=== PATIENT | female | born 1945 | race Caucasian/White ===

== ENCOUNTER 2016-10-16 12:56 | Inpatient (IN) | payer MEDICARE, OTHER ==
[2016-10-16] MEDS: SODIUM CHLORIDE 0.9% FLUSH 10 ML SOL IV PRN ×3 (13:05→21:01)
[2016-10-16] MEDS: SODIUM CHLORIDE 0.9% 1000ML 1,000 ML IV SCH ×4 (13:10→16:15)
[2016-10-16] MEDS ORDERED: CEFTRIAXONE 1 GM (PREMIX) 1 GM/50 ML SOL IV ONE ×2 (13:17→13:21)
[2016-10-16 13:23] LABS: HEMATOCRIT 33 % (35-47); MEAN CORPUSCULAR HGB CONC 33.8 gm/dl (32.0-36.0); MEAN CORPUSCULAR VOLUME 84 fL (81-99)
[2016-10-16 13:36] LABS: ALBUMIN 3.1 gm/dl (3.4-5.0); CALCIUM 8.8 mg/dl (8.5-10.1); POTASSIUM 4.1 mMol/L (3.5-5.1)
[2016-10-16 13:43] LABS: BASOPHILS % (MANUAL) 0 % (0-3); LYMPHOCYTES % (MANUAL) 11 % (10-50)
[2016-10-16 13:44] LABS: EOSINOPHILS % (MANUAL) 0 % (0-9)
[2016-10-16] MEDS ORDERED: PIPERACILLIN/TAZOBACT 3.375 GM 3.375 GM in SODIUM CHLORIDE 0.9% 100 ML 100 ML IV ONE (13:44)
[2016-10-16 13:45] LABS: NORMAL RBCS PRESENT
[2016-10-16] MEDS ORDERED: PIPERACILLIN/TAZOBACT 3.375 GM PDS IV ONE ×2 (13:47→21:05)
[2016-10-16 14:17] LABS: APPEARANCE,URINE Cloudy; BILIRUBIN,URINE 2+ (NEGATIVE); COLOR,URINE Dark yellow; GLUCOSE, URINE (UA) NEGATIVE (NEGATIVE); KETONES,URINE 1+ (NEGATIVE); LEUKOCYTE ESTERASE ,URINE 3+ (NEGATIVE); NITRATE,URINE NEGATIVE (NEGATIVE); OCCULT BLOOD,URINE 3+ (NEG-TRACE); UROBILINOGEN,URINE 0.2 (0.2-1.0 EU)
[2016-10-16 14:35] LABS: ICTOTEST,URINE NEGATIVE (NEGATIVE)
[2016-10-16 14:36] LABS: RBC,URINE UNABLE (0-3AV/HPF); WBC,URINE TNTC (0-5AV/HPF)
[2016-10-16] MEDS ORDERED: VANCOMYCIN HCL 500 MG PDS 500 MG in SODIUM CHLORIDE 0.9% 100 ML 100 ML IV ONE (15:02)
[2016-10-16] MEDS ORDERED: VANCOMYCIN HYDROCHLORIDE 500 MG PDS IV ONE (15:13)
[2016-10-16] MEDS ORDERED: WATER, STERILE 20 ML 20 ML ONE (15:27)
[2016-10-16] MEDS ORDERED: ALBUTEROL/IPRATROPIUM 1 VIAL SOL ONE (15:58)
[2016-10-16] MEDS ORDERED: ALBUTEROL/IPRATROPIUM 1 VIAL SOL INH PRN (16:01)
[2016-10-16] MEDS ORDERED: ACETAMINOPHEN 500 MG 500 MG TAB PO ONE (16:15)
[2016-10-16] MEDS ORDERED: ACETAMINOPHEN 500 MG 500 MG TAB ONE (16:16)
[2016-10-16] MEDS ORDERED: LORAZEPAM 0.5 MG TAB PO PRN (16:25)
[2016-10-16] MEDS ORDERED: LORAZEPAM 0.5 MG TAB ONE (16:29)
[2016-10-16 16:45] LABS: ABG PH 7.33 (7.35-7.45)
[2016-10-16] MEDS ORDERED: GENTAMICIN SULFATE 40 MG/ML SOL ONE (16:50)
[2016-10-16] MEDS ORDERED: LORAZEPAM 2 MG/ML SOL IV ONE (16:55)
[2016-10-16] MEDS ORDERED: LORAZEPAM 2 MG/ML SOL ONE (16:56)
[2016-10-16] MEDS ORDERED: ENOXAPARIN 40 MG SOL SC SCH ×2 (17:00→18:30)
[2016-10-16] MEDS ORDERED: GENTAMICIN SULFATE 40 MG/ML 80 MG in SODIUM CHLORIDE 0.9% 100 ML 100 ML IV SCH (17:00)
[2016-10-16] MEDS ORDERED: LEVOFLOXACIN 25 MG/ML SOL IV ONE (17:13)
[2016-10-16] MEDS ORDERED: DEXTROSE/SALINE 0.45% 1,000 ML IV SCH (17:15)
[2016-10-16] MEDS: LEVOFLOXACIN 25 MG/ML 250 MG in SODIUM CHLORIDE 0.9% 100 ML 100 ML IV SCH (17:17)
[2016-10-16] MEDS ORDERED: NOREPINEPHRINE BITARTRATE 4 MG/4 ML SOL IV ONE (17:23)
[2016-10-16] MEDS ORDERED: NOREPINEPHRINE 4 MG/4 ML 4 MG in DEXTROSE 500 ML 500 ML IV SCH (17:30)
[2016-10-16 17:41] LABS: HEMATOCRIT 30 % (35-47); MEAN CORPUSCULAR HGB CONC 32.6 gm/dl (32.0-36.0); MEAN CORPUSCULAR VOLUME 85 fL (81-99)
[2016-10-16] MEDS ORDERED: SOLUMEDROL 125 MG/2 ML 125 MG/2 ML PDS IV SCH (17:45)
[2016-10-16] MEDS ORDERED: SOLUMEDROL 125 MG/2 ML 125 MG/2 ML PDS ONE (17:50)
[2016-10-16] MEDS: NOREPINEPHRINE 4 MG/4 ML 4 MG in DEXTROSE 500 ML 500 ML IV SCH (17:50)
[2016-10-16 17:58] LABS: CALCIUM 7.5 mg/dl (8.5-10.1); POTASSIUM 3.7 mMol/L (3.5-5.1)
[2016-10-16] MEDS: SODIUM CHLORIDE 0.9% 500 ML 500 ML IV SCH (18:15)
[2016-10-16] MEDS ORDERED: ACETAMINOPHEN 650 MG SUP PR ONE (18:18)
[2016-10-16 18:39] LABS: BASOPHILS % (MANUAL) 2 % (0-3); EOSINOPHILS % (MANUAL) 0 % (0-9); LYMPHOCYTES % (MANUAL) 32 % (10-50)
[2016-10-16 18:40] LABS: ANISOCYTOSIS SLIGHT
[2016-10-16] MEDS ORDERED: SODIUM CHLORIDE 0.9% 100 ML 100 ML IV ONE (21:06)
[2016-10-16] MEDS: PIPERACILLIN/TAZOBACT 3.375 GM 3.375 GM in SODIUM CHLORIDE 0.9% 100 ML 100 ML IV SCH (21:17)
[2016-10-17] MEDS ORDERED: SODIUM CHLORIDE 0.9% 500 ML 500 ML IV ONE (00:30)
[2016-10-17] MEDS ORDERED: NOREPINEPHRINE BITARTRATE 4 MG/4 ML SOL IV ONE ×6 (00:53→23:10)
[2016-10-17] MEDS ORDERED: DEXTROSE 500 ML 500 ML IV ONE ×6 (00:53→23:10)
[2016-10-17] MEDS: NOREPINEPHRINE 4 MG/4 ML 4 MG in DEXTROSE 500 ML 500 ML IV SCH ×5 (01:11→23:32)
[2016-10-17] MEDS: SODIUM CHLORIDE 0.9% 1000ML 1,000 ML IV SCH ×3 (01:13→15:20)
[2016-10-17] MEDS: SODIUM CHLORIDE 0.9% 500 ML 500 ML IV SCH (04:13)
[2016-10-17] MEDS ORDERED: PIPERACILLIN/TAZOBACT 3.375 GM PDS IV ONE ×3 (06:33→22:18)
[2016-10-17] MEDS ORDERED: SODIUM CHLORIDE 0.9% 100 ML 100 ML IV ONE ×4 (06:33→22:20)
[2016-10-17] MEDS: PIPERACILLIN/TAZOBACT 3.375 GM 3.375 GM in SODIUM CHLORIDE 0.9% 100 ML 100 ML IV SCH ×3 (06:43→22:21)
[2016-10-17 08:04] LABS: HEMATOCRIT 28 % (35-47); MEAN CORPUSCULAR HGB CONC 33.2 gm/dl (32.0-36.0); MEAN CORPUSCULAR VOLUME 84 fL (81-99)
[2016-10-17 08:19] LABS: CALCIUM 6.6 mg/dl (8.5-10.1); POTASSIUM 3.4 mMol/L (3.5-5.1)
[2016-10-17] MEDS ORDERED: LEVOFLOXACIN 25 MG/ML SOL IV ONE (08:21)
[2016-10-17] MEDS: LEVOTHYROXINE SODIUM 50 MCG TAB PO SCH (08:22)
[2016-10-17 08:44] LABS: BASOPHILS % (MANUAL) 0 % (0-3); EOSINOPHILS % (MANUAL) 0 % (0-9); LYMPHOCYTES % (MANUAL) 9 % (10-50)
[2016-10-17 08:45] LABS: NORMAL RBCS PRESENT; TOXIC VACUOLATION OCCASIONAL
[2016-10-17] MEDS ORDERED: LORAZEPAM 2 MG/ML SOL IV PRN (08:47)
[2016-10-17] MEDS ORDERED: ACETAMINOPHEN 325 MG PO PRN (08:47)
[2016-10-17] MEDS: LEVOFLOXACIN 25 MG/ML 250 MG in SODIUM CHLORIDE 0.9% 100 ML 100 ML IV SCH (08:55)
[2016-10-17] MEDS ORDERED: LEVOTHYROXINE SODIUM 50 MCG TAB PO SCH (09:00)
[2016-10-17] MEDS: ENOXAPARIN 60 MG SOL SC SCH (11:12)
[2016-10-17] MEDS ORDERED: PHENTOLAMINE MESYLATE 5 MG INFIL ONE (13:24)
[2016-10-17] MEDS ORDERED: TERBUTALINE SULFATE 1 MG/ML SOL SC PRN (14:33)
[2016-10-17] MEDS ORDERED: TERBUTALINE SULFATE 1 MG/ML SOL SC ONE (14:43)
[2016-10-17] MEDS ORDERED: SODIUM CHLORIDE/KCL 20MEQ 1,000 ML IV ONE ×2 (15:04→16:45)
[2016-10-17] MEDS ORDERED: CITALOPRAM 20 MG TAB PO SCH (21:00)
[2016-10-18] MEDS: NOREPINEPHRINE 4 MG/4 ML 4 MG in DEXTROSE 500 ML 500 ML IV SCH ×2 (03:28→07:59)
[2016-10-18] MEDS ORDERED: SODIUM CHLORIDE 0.9% 100 ML 100 ML IV ONE ×3 (05:25→09:06)
[2016-10-18] MEDS ORDERED: PIPERACILLIN/TAZOBACT 3.375 GM PDS IV ONE (05:25)
[2016-10-18] MEDS: PIPERACILLIN/TAZOBACT 3.375 GM 3.375 GM in SODIUM CHLORIDE 0.9% 100 ML 100 ML IV SCH (06:09)
[2016-10-18] MEDS: LEVOTHYROXINE SODIUM 50 MCG TAB PO SCH (07:22)
[2016-10-18 07:33] LABS: HEMATOCRIT 28 % (35-47); MEAN CORPUSCULAR HGB CONC 35.3 gm/dl (32.0-36.0); MEAN CORPUSCULAR VOLUME 83 fL (81-99)
[2016-10-18 07:37] LABS: CALCIUM 6.9 mg/dl (8.5-10.1); POTASSIUM 3.4 mMol/L (3.5-5.1)
[2016-10-18 08:20] LABS: ANISOCYTOSIS SLIGHT; BASOPHILS % (MANUAL) 0 % (0-3); EOSINOPHILS % (MANUAL) 0 % (0-9); LYMPHOCYTES % (MANUAL) 3 % (10-50)
[2016-10-18] MEDS ORDERED: CALCIUM GLUCONATE 10% 100 MG/ML SOL IV ONE (08:26)
[2016-10-18] MEDS ORDERED: VANCOMYCIN HCL 500 MG PDS 500 MG in SODIUM CHLORIDE 0.9% 100 ML 100 ML IV SCH (08:30)
[2016-10-18] MEDS ORDERED: NOREPINEPHRINE BITARTRATE 4 MG/4 ML SOL IV SCH (08:45)
[2016-10-18] MEDS ORDERED: VANCOMYCIN HYDROCHLORIDE 500 MG PDS IV ONE (09:04)
[2016-10-18] MEDS ORDERED: LEVOFLOXACIN 25 MG/ML SOL IV ONE (09:06)
[2016-10-18] MEDS: SODIUM CHLORIDE 0.9% FLUSH 10 ML SOL IV PRN (09:16)
[2016-10-18] MEDS ORDERED: ONDANSETRON HCL 4 MG/2 ML SOL ONE (09:43)
[2016-10-18] MEDS ORDERED: ONDANSETRON HCL 4 MG/2 ML SOL IV PRN (09:43)
[2016-10-18 10:00] VITALS: PULSE 87
[2016-10-18 10:05] VITALS: RESP 28; O2SAT 95
[2016-10-18 10:06] VITALS: TEMP 98.5
[2016-10-18] MEDS: ENOXAPARIN 60 MG SOL SC SCH (10:08)
[2016-10-18 10:17] VITALS: BP 108/65
== END 2016-10-18 10:55 | disposition short-term general hospital (02) | DRG 872 ==
LOC: ED 12:56 → SUPCPDRO 12:56 → UNDOADMIN 15:57 → ACUTE CARE 15:57 → UNDOADMIN 20:09 → ACUTE CARE 20:15
PROVIDERS: ADMIT Emergency Medicine; ATTEND Emergency Medicine
DX: A41.9 Sepsis, unspecified organism (principal); N17.9 Acute kidney failure, unspecified; I50.9 Heart failure, unspecified; R06.00 Dyspnea, unspecified; E87.1 Hypo-osmolality and hyponatremia; N39.0 Urinary tract infection, site not specified; I48.91 Unspecified atrial fibrillation; E86.0 Dehydration; T83.511A Infection and inflammatory reaction due to indwelling urethral catheter, initial encounter; E83.51 Hypocalcemia
CPT/HCPCS: 36415; 36600; 71010; 80048; 80053; 81001; 82550; 82803; 83880; 84484; 85007; 85027; 85378; 87040; 87077; 87088; 87186; 87205; 93005; 93012; 94660; 94762; 96365; 96366; 96374; 96375; 99070; 99291; J0610; J0696; J1580; J1650; J1956; J2060; J2405; J2543; J2930; J3105; J3370; J7620

== ENCOUNTER 2017-09-22 12:04 | Inpatient (IN) | payer MEDICARE, OTHER ==
[2017-09-22] MEDS ORDERED: CEFTRIAXONE 1 GM PDS 1 GM in SODIUM CHLORIDE 0.9% 50 ML 50 ML IV ONE (12:44)
[2017-09-22] MEDS ORDERED: SODIUM CHLORIDE 0.9% 1000 ML SOL IV ONE (12:45)
[2017-09-22] MEDS ORDERED: FLUCONAZOLE 150 MG TAB PO SCH (13:15)
[2017-09-22] MEDS ORDERED: SODIUM CHLORIDE 0.9% 1000ML 1,000 ML IV ONE (13:29)
[2017-09-22 13:32] LABS: BASOPHILS % (AUTO) 1 % (0-3); EOSINOPHILS % (AUTO) 4 % (0-9); HEMATOCRIT 37 % (35-47); MEAN CORPUSCULAR HGB CONC 33.3 gm/dl (32.0-36.0); MEAN CORPUSCULAR VOLUME 90 fL (81-99); MONOCYTES % (AUTO) 9.2 % (0-12); NEUTROPHILS % (AUTO) 56.4 % (37-80)
[2017-09-22] MEDS ORDERED: SODIUM CHLORIDE 0.9% 50 ML 50 ML IV ONE (13:33)
[2017-09-22] MEDS ORDERED: CEFTRIAXONE 1 GM PDS ONE (13:33)
[2017-09-22 13:42] LABS: CALCIUM 9.2 mg/dl (8.5-10.1)
[2017-09-22 13:46] LABS: POTASSIUM 4.8 mMol/L (3.5-5.1)
[2017-09-22] MEDS: SODIUM CHLORIDE 0.9% FLUSH 10 ML SOL IV SCH ×3 (15:48→22:46)
[2017-09-22] MEDS: CITALOPRAM 20 MG TAB PO SCH (20:54)
[2017-09-22] MEDS: OXYBUTYNIN ER 15MG TER PO SCH (20:55)
[2017-09-23] MEDS: SODIUM CHLORIDE 0.9% FLUSH 10 ML SOL IV SCH ×3 (05:58→23:00)
[2017-09-23] MEDS: LEVOTHYROXINE SODIUM 50 MCG TAB PO SCH (06:00)
[2017-09-23] MEDS ORDERED: LEVOTHYROXINE SODIUM 50 MCG TAB PO SCH ×2 (07:00→09:00)
[2017-09-23] MEDS ORDERED: POLYETHYLENE GLYCOL 17 GM/1 TBS PDS PO SCH (09:00)
[2017-09-23] MEDS: FLUCONAZOLE 150 MG TAB PO SCH (12:22)
[2017-09-23] MEDS ORDERED: MAGNESIUM HYDROXIDE 30 ML SUS PO PRN (12:26)
[2017-09-23] MEDS ORDERED: CEFTRIAXONE 1 GM PDS 1 GM in SODIUM CHLORIDE 0.9% 50 ML 50 ML IV SCH (14:00)
[2017-09-23] MEDS ORDERED: SODIUM CHLORIDE 0.9% 50 ML 50 ML IV ONE (14:02)
[2017-09-23] MEDS ORDERED: CEFTRIAXONE 1 GM PDS ONE (14:02)
[2017-09-23] MEDS: CEFTRIAXONE 1 GM PDS 1 GM in SODIUM CHLORIDE 0.9% 50 ML 50 ML IV SCH (14:09)
[2017-09-23] MEDS: MAGNESIUM HYDROXIDE 30 ML SUS PO SCH (14:26)
[2017-09-23] MEDS: OXYBUTYNIN ER 15MG TER PO SCH (20:34)
[2017-09-23] MEDS: CITALOPRAM 20 MG TAB PO SCH (20:35)
[2017-09-23] MEDS: POLYETHYLENE GLYCOL 17 GM/1 TBS PDS PO SCH (20:35)
[2017-09-24] MEDS: SODIUM CHLORIDE 0.9% FLUSH 10 ML SOL IV SCH ×3 (06:20→20:41)
[2017-09-24] MEDS: LEVOTHYROXINE SODIUM 50 MCG TAB PO SCH (06:25)
[2017-09-24 07:14] LABS: POTASSIUM 4.3 mMol/L (3.5-5.1)
[2017-09-24 07:19] LABS: BASOPHILS % (AUTO) 1 % (0-3); EOSINOPHILS % (AUTO) 7 % (0-9); HEMATOCRIT 35 % (35-47); MEAN CORPUSCULAR VOLUME 90 fL (81-99); MONOCYTES % (AUTO) 9.3 % (0-12); NEUTROPHILS % (AUTO) 48.6 % (37-80)
[2017-09-24] MEDS: FLUCONAZOLE 150 MG TAB PO SCH (08:33)
[2017-09-24] MEDS: POLYETHYLENE GLYCOL 17 GM/1 TBS PDS PO SCH ×2 (08:34→20:41)
[2017-09-24] MEDS: MAGNESIUM HYDROXIDE 30 ML SUS PO SCH ×2 (08:34→09:29)
[2017-09-24] MEDS ORDERED: SODIUM CHLORIDE 0.9% 50 ML 50 ML IV ONE (13:26)
[2017-09-24] MEDS ORDERED: CEFTRIAXONE 1 GM PDS ONE (13:26)
[2017-09-24] MEDS: CEFTRIAXONE 1 GM PDS 1 GM in SODIUM CHLORIDE 0.9% 50 ML 50 ML IV SCH (13:36)
[2017-09-24] MEDS: CITALOPRAM 20 MG TAB PO SCH (20:42)
[2017-09-24] MEDS: OXYBUTYNIN ER 15MG TER PO SCH (20:42)
[2017-09-25 00:44] VITALS: RESP 18
[2017-09-25] MEDS: SODIUM CHLORIDE 0.9% FLUSH 10 ML SOL IV SCH ×2 (05:09→09:55)
[2017-09-25] MEDS: LEVOTHYROXINE SODIUM 50 MCG TAB PO SCH (06:12)
[2017-09-25 07:41] VITALS: BP 134/77; PULSE 68; TEMP 97.7; O2SAT 95
[2017-09-25] MEDS: FLUCONAZOLE 150 MG TAB PO SCH (08:55)
[2017-09-25] MEDS: MAGNESIUM HYDROXIDE 30 ML SUS PO SCH (08:55)
[2017-09-25] MEDS: POLYETHYLENE GLYCOL 17 GM/1 TBS PDS PO SCH (08:55)
[2017-09-25] MEDS ORDERED: CEFPROZIL 250 MG/5 ML SUSP.RECON PO SCH (12:00)
== END 2017-09-25 10:55 | DRG 700 ==
LOC: ACUTE CARE 12:17
PROVIDERS: ADMIT Family Medicine; ATTEND Family Medicine
DX: T83.511A Infection and inflammatory reaction due to indwelling urethral catheter, initial encounter (principal); R10.84 Generalized abdominal pain; R32 Unspecified urinary incontinence; S31.40XA Unspecified open wound of vagina and vulva, initial encounter; N39.0 Urinary tract infection, site not specified; R27.0 Ataxia, unspecified
CPT/HCPCS: 36415; 74019; 80048; 85025; 99070; J0696; A9270-GY

== ENCOUNTER 2018-12-08 10:52 | Day surgery (SDC) | payer MEDICARE, OTHER ==
[~2018-12-08 10:52] MED LIST: MIDAZOLAM 2 MG/2 ML SOL ONE
[2018-12-08] MEDS ORDERED: ACETAZOLAMIDE 250 MG PO ONE (11:06)
[2018-12-08] MEDS: TETRACAINE HCL 0.5 % 1 DROP SOL ONE ×3 (11:27→12:29)
[2018-12-08] MEDS: PHENYLEPHRINE HCL 10% OPHTHAL SOL ONE ×2 (11:28→11:43)
[2018-12-08] MEDS: CYCLOPENTOLATE 1% SOL ONE ×2 (11:29→11:44)
[2018-12-08] MEDS: KETOROLAC 0.5% OPTH 60 DROP SOL ONE ×2 (11:30→11:45)
[2018-12-08] MEDS ORDERED: POVIDONE IODINE 5% SOL ONE (12:21)
[2018-12-08] MEDS ORDERED: BSS 500 ML 500 ML IR ONE (12:21)
[2018-12-08] MEDS ORDERED: LIDOCAINE HCL 1% MPF 30 SOL ONE (12:21)
[2018-12-08] MEDS ORDERED: IMPRIMIS ONE (12:21)
[2018-12-08 13:17] VITALS: BP 106/66; PULSE 73; RESP 18; TEMP 97.4; O2SAT 92
== END 2018-12-08 13:35 | disposition home or self-care (01) | DRG 125 ==
LOC: SURG 10:52
PROVIDERS: ATTEND Ophthalmology
DX: H25.89 Other age-related cataract (principal)
CPT/HCPCS: J2250; A9270-GY; J2001

== ENCOUNTER 2019-01-05 10:15 | Day surgery (SDC) | payer MEDICARE, OTHER ==
[2019-01-05] MEDS ORDERED: ACETAZOLAMIDE 250 MG PO ONE (10:30)
[2019-01-05 10:37] VITALS: RESP 18
[2019-01-05] MEDS: PHENYLEPHRINE HCL 10% OPHTHAL SOL ONE ×2 (10:41→10:54)
[2019-01-05] MEDS: CYCLOPENTOLATE 1% SOL ONE ×2 (10:41→10:54)
[2019-01-05] MEDS: TETRACAINE HCL 0.5 % 1 DROP SOL ONE ×3 (10:41→11:44)
[2019-01-05] MEDS: KETOROLAC 0.5% OPTH 60 DROP SOL ONE ×3 (10:41→10:55)
[2019-01-05] MEDS ORDERED: MIDAZOLAM 2 MG/2 ML SOL ONE (11:25)
[2019-01-05] MEDS ORDERED: BSS 500 ML 500 ML IR ONE (11:38)
[2019-01-05] MEDS ORDERED: POVIDONE IODINE 5% SOL ONE (11:38)
[2019-01-05] MEDS ORDERED: LIDOCAINE HCL 1% MPF 30 SOL ONE (11:38)
[2019-01-05] MEDS ORDERED: IMPRIMIS ONE (11:38)
[2019-01-05] MEDS ORDERED: FENTANYL 100MCG/2ML SOL ONE (11:39)
[2019-01-05 12:23] VITALS: BP 154/76; PULSE 72; TEMP 97.4; O2SAT 91
== END 2019-01-05 12:46 | disposition home or self-care (01) | DRG 125 ==
LOC: SURG 10:15
PROVIDERS: ATTEND Ophthalmology
DX: H25.89 Other age-related cataract (principal); H57.03 Miosis
CPT/HCPCS: J2250; J3010; A9270-GY; J2001